=== PATIENT | female | born 1985 | race Caucasian/White ===

== ENCOUNTER 2016-08-08 21:29 | Emergency (ER) | payer OTHER ==
[2016-08-08 23:13] VITALS: BP 120/72
== END 2016-08-08 23:13 | disposition home or self-care (01) ==
LOC: ED 21:29
DX: N76.4 Abscess of vulva (principal); Z79.899 Other long term (current) drug therapy
CPT/HCPCS: J3490

== ENCOUNTER 2017-06-10 21:10 | Emergency (ER) | payer OTHER ==
[~2017-06-10] VITALS: Ht 152.4 cm; Wt 53.5 kg
[2017-06-10 21:26] VITALS: Ht 152.4 cm; Wt 53.5 kg
[2017-06-10 23:09] VITALS: BP 105/67
== END 2017-06-10 23:09 | disposition home or self-care (01) ==
LOC: ED 21:10
DX: B34.9 Viral infection, unspecified (principal)